=== PATIENT | female | born 1960 | race African-American/Black ===

== ENCOUNTER 2017-11-09 11:44 | Observation (INO) | payer OTHER ==
[~2017-11-09] VITALS: Ht 162.6 cm; Wt 115.7 kg
--- NOTE | ~2017-11-09 | EKG ---
[place] [address] [facility] [place] [address] ELECTROCARDIOGRAM REPORT Name: DIAMOND WU Room #: 170-7 ADM IN M.R.#: [id number] Admission: 11/09/17 Attend Phys: Sunny Roca Discharge: Date of : 60 Report #: [id number] THIS REPORT FOR: //name// [facility] ED Test Date: 2017-11-09 Test Time: 11:49:03 Pat Name: DIAMOND WU Department: Room: 170 Gender: F [employer] Officer: [place] : 1960 Requested By: Marvin Sanchez Order Number: [id number] MD: Anibal Redman Measurements Intervals [place] Rate: 83 P: 68 [place]: 159 QRS: 17 QRSD: 117 T: 258 QT: 364 QTc: 428 Interpretive Statements Sinus rhythm Probable left atrial enlargement Incomplete right bundle branch block Abnrm T, consider ischemia, anterolateral lds No previous ECG available for comparison Electronically Signed On 11-09-2017 16:18:43 [employer] by Anibal Redman [email or web address] <ELECTRONICALLY SIGNED> By: Anibal Redman MD 11/09/17 1618 1149 1149 Anibal Redman MD /YARI
[2017-11-09 12:23] LABS: ABSOLUTE NEUTROPHILS 4.5 thou/uL (1.4-8.2); BASOPHILS 0.9 % (0.0-2.0); EOSINOPHILS 2.8 % (0.0-3.0); HEMATOCRIT 39.5 % (37.0-47.0); HEMOGLOBIN 13.5 gm/dL (12.0-15.0); LYMPHOCYTES 34.9 % (24.0-44.0); MCH 30.4 pg (26.0-34.0); MCHC 34.1 g/dL (28.0-37.0); MCV 89.1 fL (80.0-100.0); MONOCYTES 6.6 % (1.0-8.0); PLATELET COUNT 274 thou/uL (150-400); POLYS 54.8 % (36.0-66.0); RBC 4.44 mil/uL (4.20-5.00); RDW 15.4 % (10.5-14.5); WBC 8.2 thou/uL (4.0-11.0)
[2017-11-09 12:58] LABS: ANION GAP 7 mmol/L (7-16); BUN 12 mg/dL (7-18); CALCIUM 8.9 mg/dL (8.5-10.1); CHLORIDE 109 mmol/L (98-107); CO2 26 mmol/L (21-32); CREATININE 0.9 mg/dL (0.6-1.0); GLUCOSE 101 mg/dL (74-106); POTASSIUM 3.8 mmol/L (3.5-5.1); SODIUM 142 mmol/L (136-145)
[2017-11-09 13:07] LABS: TROPONIN-I < 0.04 ng/mL (<0.06)
[2017-11-09 15:32] LABS: CHOLESTEROL 150 mg/dL (<200); HDL CHOLESTEROL 49 mg/dL (>40); LDL CHOLESTEROL 76 mg/dL (<100); TC:HDL 3.1 Ratio (Not establshd); TRIGLYCERIDE 125 mg/dL (<150); VLDL 25 mg/dL (<40)
[2017-11-09 15:34] LABS: SERUM ASSESSMENT Clear
[2017-11-09 16:02] VITALS: BP 146/80
[2017-11-09 18:14] VITALS: BP 146/80
[2017-11-09 18:35] VITALS: BP 144/72
[2017-11-09 20:50] VITALS: BP 125/78
[2017-11-10 00:07] LABS: GLYCOHEMOGLOBIN (HGB A1C) 5.7 % (4.8-5.6)
[2017-11-10 04:15] VITALS: BP 133/86
[2017-11-10 08:26] VITALS: BP 145/92
[2017-11-10 16:00] VITALS: BP 135/69
[2017-11-10 19:13] VITALS: BP 141/78
[2017-11-11 04:23] VITALS: BP 141/88
[2017-11-11 08:00] VITALS: BP 140/79
[2017-11-11 09:20] VITALS: BP 140/79
[2017-11-11 10:39] VITALS: BP 140/79
== END 2017-11-11 13:57 | disposition home or self-care (01) ==
LOC: ER 11:44 → 4E 14:12 → EROBS 14:12 → 4E 18:31
PROVIDERS: Emergency Medicine; Hospitalist
DX: R07.9 Chest pain, unspecified (principal); I10 Essential (primary) hypertension; R94.31 Abnormal electrocardiogram [ECG] [EKG]
CPT/HCPCS: 10183